=== PATIENT | male | born 1990 | race African-American/Black ===

== ENCOUNTER 2020-04-04 23:51 | Emergency (ER) | payer MEDICAID ==
[~2020-04-04] VITALS: Ht 170.2 cm; Wt 70.3 kg
[2020-04-05 00:20] VITALS: BP_SYST 137
--- NOTE | 2020-04-05 00:20 | NUR ---
Pt wheeled to bed 5 for evaluation
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
--- NOTE | 2020-04-05 00:56 | NUR ---
ER Dr. Swain at bedside examining patient.
[2020-04-05 01:26] VITALS: BP_SYST 137
--- NOTE | 2020-04-05 01:26 | NUR ---
Patient given written and verbal discharge instructions and verbalizes understanding. ER MD discussed with patient the results and treatment provided. Patient in stable condition. ID arm band removed. Rx of Clindamycin given. Patient educated on pain management and to follow up with PMD. Pain Scale 2/10. Opportunity for questions provided and answered. Medication side effect fact sheet provided.
== END 2020-04-05 01:26 | disposition home or self-care (01) ==
LOC: SED 23:51
DX: L03.211 Cellulitis of face (principal)
CPT/HCPCS: 99283

== ENCOUNTER 2020-09-07 18:30 | Emergency (ER) | payer MEDICAID ==
[~2020-09-07] VITALS: Ht 170.2 cm; Wt 71.7 kg
--- NOTE | 2020-09-07 18:30 | NUR ---
Called patient x 1 , no answer
--- NOTE | 2020-09-07 18:54 | NUR ---
Called patient x2, no answer
[2020-09-07 19:05] VITALS: BP_SYST 149
--- NOTE | 2020-09-07 19:10 | NUR ---
Patient to ER bed 04 to gown for evaluation. Side rails up.
--- NOTE | 2020-09-07 19:20 | NUR ---
ER [employer] TE[employer] TECHNICIAN LISANDRO STRICKLAND AT THE BEDSIDE EVALUATING PT
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
[2020-09-07] MEDS ORDERED: ACETAMINOPHEN 500 MG TABLET PO ONE (19:30)
[2020-09-07] MEDS ORDERED: KETOROLAC TROMETHAMINE 60 MG/2 ML VIAL IM ONE (19:30)
--- NOTE | 2020-09-07 19:30 | NUR ---
PORTABLE X-RAY AT THE BEDSIDE
--- NOTE | 2020-09-07 20:00 | NUR ---
US AT THE BEDSIDE
--- NOTE | 2020-09-07 21:00 | NUR ---
PT SLEEPING IN BED, NO S/SX DISTRESS
--- NOTE | 2020-09-07 21:10 | NUR ---
MEAL PROVIDED FOR PT TO TAKE WITH HIM
--- NOTE | 2020-09-07 21:11 | NUR ---
Patient given written and verbal discharge instructions and verbalizes understanding. ER MD discussed with patient the results and treatment provided. Patient in stable condition. ID arm band removed. Rx of TINACTIN, KEFLEX, MOTRIN, MUPIROCIN OINTMENT, AND BACTRIM. given. Patient educated on pain management and to follow up with PMD. Pain Scale 0/10. Opportunity for questions provided and answered. Medication side effect fact sheet provided.
--- NOTE | 2020-09-07 21:11 | NUR ---
Patient given written and verbal discharge instructions and verbalizes understanding. Given copies of tests performed during visit. Patient is awake, alert and oriented. Ambulatory with steady gait. Refuses offer of group home placement. Given list of available shelters in surrounding areas.
[2020-09-07 21:13] VITALS: BP_SYST 137
== END 2020-09-07 21:13 | disposition home or self-care (01) ==
LOC: SED 18:30
DX: L03.115 Cellulitis of right lower limb (principal); B35.3 Tinea pedis; R03.0 Elevated blood-pressure reading, without diagnosis of hypertension; F17.210 Nicotine dependence, cigarettes, uncomplicated; Z71.6 Tobacco abuse counseling
CPT/HCPCS: 73590-TC; 93971; 99284